=== PATIENT | male | born 1965 | race Hispanic/Latino ===

== ENCOUNTER → 2018-10-24 | Outpatient (CLI) | payer BC ==
--- NOTE | 2018-10-24 21:39 | Diagnostic Imaging Report ---
Exam: Lumbar spine AP lateral oblique History: Pain Comparison: None. Findings: No fracture or malalignment. Degenerative endplate change without significant narrowing. Facet joints intact. Mild sacroiliac joint arthrosis. No abnormal soft tissue calcification or soft tissue defect. Impression: No acute osseous abnormality No significant spondyloarthropathy Signed by: Dr. Artur Flores M.D. on 10/24/2018 9:36 PM
== END ==
LOC: RAD 16:46
PROVIDERS: ATTEND Internal Medicine
DX: M54.5 Low back pain (principal)
CPT/HCPCS: 72110; 72220

== ENCOUNTER → 2020-11-05 | Day surgery (SDC) | payer BC ==
[~2020-11-05] MED LIST: LIDOCAINE HCL 2% LOCAL INJ 5 ML SDV VIAL INJ ONE; PROPOFOL IV EMULSION 10 MG/ML 20 ML VIAL ONE
[2020-11-05 15:15] VITALS: BP 114/77
== END | disposition home or self-care (01) ==
LOC: OR 13:32
PROVIDERS: ATTEND Internal Medicine Gastroenterology
DX: Z12.11 Encounter for screening for malignant neoplasm of colon (principal); D12.2 Benign neoplasm of ascending colon; D12.4 Benign neoplasm of descending colon; K64.8 Other hemorrhoids; K21.9 Gastro-esophageal reflux disease without esophagitis; R13.10 Dysphagia, unspecified; R06.83 Snoring; R03.0 Elevated blood-pressure reading, without diagnosis of hypertension; Z01.812 Encounter for preprocedural laboratory examination; Z20.822 Contact with and (suspected) exposure to COVID-19; Z68.26 Body mass index [BMI] 26.0-26.9, adult
CPT/HCPCS: 45380; 45385; 93005; J2001; J2704; U0002; 45378; 45384